=== PATIENT | female | born 1980 | race African-American/Black ===

== ENCOUNTER → 2016-03-30 | Outpatient (CLI) | payer OTHER ==
--- NOTE | 2016-03-30 12:54 | US ---
March 30, [address] Reyes, Thank you for requesting consultation and a ultrasound to evaluate anatomy for your patient, Mrs. Hopper. As you know, Mickie is a 35 year old G 3 P 1011 with a lares dating 20 w 2 d; TENA of 08/15/16 by IVF. Her is complicated by IVF and prior steve arean section secondary arrest disorder. The baby weighed 8 lb 8 oz. ULTRASOUND Number of fetuses: 1 Placental location: Posterior; no previa Placental cord insertion: Intraplacental presentation: Variable Cervix: 3.9 cm viewed transabdominally Maximum Vertical Pocket: 4.4 cm The adnexa were evaluated. No pathology was seen. Right ovary is visualized and seen as normal. It measures 2.5 x 1.7 x 1.7 cm. Left ovary is visualized and seen as normal. It measures 2.3 x 1.9 x 0.6 cm. MEASUREMENTS: Biparietal diameter: 48 mm 20 weeks, 5days Head circumference: 179 mm 20 weeks, 3 days Abdominal circumference: 159 mm 21 weeks, 1days Femur length: 32 mm 20weeks, 1 days Humerus length: 32 mm 20 weeks, 4days Transcerebellar diameter: 23 mm 21 weeks, 1 days Average ultrasound age: 20 weeks, 5 days Estimated weight: 363 gm weight percentile: 62% ANATOMY Supratentorial brain: Normal including views of the falx, cavum septum pellucidum and choroids Lateral Ventricle: Normal, measuring 6.1 mm Posterior fossa: Normal including the cerebellum and cisterna magna Spine: Normal Nuchal fold: 4.6 mm normal Face: Normal views of the lip and nose area Profile: Normal Palate: Normal appearance of the alveolar ridge Heart: Normal four chamber view including the intraventricular septum and the outflow tracts are see n appropriately oriented and crossing. Aortic and ductal arches are seen. SVC/IVC are seen. Heart Rate 142 bpm Diaphragm: Normal appearance without overt abnormality detected Stomach: Normal Umbilical cord insertion: Normal Right kidney: Normal Left kidney: Normal Bladder: Normal Number of cord vessels: Three Upper extremities: Normal Lower extremities: Normal Gender: Female IMPRESSION: 1. Intrauterine at 20 w 2d, ultrasound is consistent with her established TENA of 08/15/16. 2. Normal anatomical survey. 3. Cervical length is normal at 3.9cm without evidence of insufficiency. 4. IVF with preimplantation genetic diagnosis 5. Prior section; desires repeat RECOMMENDATIONS: I was pleased to review today's ultrasound with your patient and her spouse. I reassured them that t he baby is growing appropriately with normal amniotic fluid volume. Our detailed review of the anatomy did not reveal any overt abnormalities. For women who conceive by IVF/ART, a echocardiogram is recommended per AIUM guidelines. I have taken the liberty of scheduling this for your patient in 4 weeks. Thank you for allowing us the opportunity to evaluate your patient. Should you have any further ques tions or concerns please do not hesitate to contact me. Approximately 20 minutes were spent with the patient and 12 minutes were spent in face to face consu ltation. Neli Ortiz MD [employer] Maternal Medicine Diagnosis Department of Obstetrics & Gynecology [facility]
--- NOTE | 2016-03-30 14:20 | US ---
Detailed Obstetric Ultrasound Indication: Evaluate growth and anatomy. IVF . Comparison: Baseline evaluation Dr. Neli Ortiz was present during imaging. Findings: Biometry: Average gestational age by ultrasound: 20 weeks 5 days with EDC by ultrasound of August 12, 2016. Estimated gestational age by IVF: 20 weeks 2 days with an EDC by IVF of August 15, 2016. Maternal Ovaries: Normal in appearance with the right ovary measuring 1.7 x 1.7 x 2.5 cm and the left ovary measuring 2.3 x 0.6 x 1.9 cm. Number: 1 Presentation: Transverse lie with the head on the maternal left. Placental location: Posterior without previa. There is central umbilical cord insertion. Cervix: 3.9 cm from transabdominal measurement Amniotic fluid maximum vertical pocket: 4.4 cm Biparietal diameter: 20 weeks 5 days, 4.82 cm Head circumference: 20 weeks 3 days, 17.87 cm Abdominal circumference: 21 weeks 1.0 day, 15.89 cm Femur length: 20 weeks 1.0 day, 3.25 cm Humerus length: 20 weeks 4 days, 3.15 cm Transcerebellar diameter: 21 weeks 1.0 day, 2.26 cm Estimated weight is 363 gms ( 13 ounces ). The estimated weight is at the 62nd percentile based on IVF dates. Anatomy Survey: Supratentorial brain: Normal Posterior fossa: Normal Spine: Normal Nose and lips: Normal Profile: Normal Heart: Four chamber heart with normal interventricular septum heart rate of 142 bpm. RVOT: Normal LVOT: Normal Stomach: Normal Bowel: Normal echogenicity. Umbilical cord insertion: Normal Kidneys: Normal, no pyelectasis Bladder: Normal Number of cord vessels: Three Upper extremities: Normal Lower extremities: Normal Gender: Female Impression: 1. Living lares in transverse orientation with the head on the maternal left at t his time. 2. Size concordant with dates as detailed above. 3. Unremarkable anatomy. No anomalies detected.
== END ==
LOC: FIMAGING 10:34
PROVIDERS: ATTEND Obstetrics & Gynecology
DX: O09.812 Supervision of pregnancy resulting from assisted reproductive technology, second trimester (principal); Z3A.20 20 weeks gestation of pregnancy; Z98.891 History of uterine scar from previous surgery